=== PATIENT | female | born 1960 | race Caucasian/White ===

== ENCOUNTER → 2018-05-19 | Outpatient (CLI) | payer OTHER ==
--- NOTE | 2018-05-19 14:04 | Diagnostic Imaging Report ---
INDICATION: Back pain. FINDINGS: Bone mineral analysis was performed of the lumbar spine and both hips. Bone mineral density of the lumbar spine L2-L4 is 0.804 with T score of -3.3. Bone mineral density of left femoral neck is 0.686 with a T score of -2.5. Bone mineral density of right femoral neck is 0.688 with a T score of -2.5. IMPRESSION: Findings consistent with osteoporosis of the lumbar spine and bilateral femoral necks. Dictated by: Dictated on workstation # [id number]
== END ==
LOC: RAD 09:35
PROVIDERS: ATTEND General Practice
DX: M77.9 Enthesopathy, unspecified (principal); E78.00 Pure hypercholesterolemia, unspecified; F17.200 Nicotine dependence, unspecified, uncomplicated; M54.9 Dorsalgia, unspecified
CPT/HCPCS: 77080

== ENCOUNTER → 2019-05-23 | Outpatient (CLI) | payer OTHER ==
--- NOTE | 2019-05-23 13:01 | Diagnostic Imaging Report ---
PROCEDURE: US Non-ob pelvis comp/trans. TECHNIQUE: Multiple realtime grayscale images were obtained of the pelvis in various projections endovaginally. Transabdominal imaging was also performed. INDICATION: Postmenopausal lower abdominal pain. COMPARISON: None available. FINDINGS: The uterus measures 4.2 x 2.8 x 5.9 cm. The myometrium is normal in echogenicity without discrete mass. The endometrium measures up to 0.3 cm where visualized, and is normal in echogenicity. The right ovary is not seen with certainty. There is a structure in the right adnexa that is measured at 3.8 x 3.3 x 2.4 cm that could represent an enlarged ovary versus bowel loop containing stool. The left ovary measures 2.2 x 1.4 x 1.2 cm. Blood flow is present in the left ovary by color Doppler imaging. No free pelvic fluid. IMPRESSION: 1. Right ovary is not identified with certainty. There is a structure in the right adnexa that could represent a stool filled bowel loop versus an abnormal ovary. Recommend CT pelvis with contrast for better delineation. Dictated by: Dictated on workstation # [id number]
== END ==
LOC: RAD 10:02
PROVIDERS: ATTEND Nurse Practitioner Family
DX: R10.30 Lower abdominal pain, unspecified (principal); Z78.0 Asymptomatic menopausal state
CPT/HCPCS: 76830; 76856

== ENCOUNTER → 2019-05-30 | Outpatient (CLI) | payer OTHER ==
--- NOTE | 2019-05-30 15:13 | Diagnostic Imaging Report ---
PROCEDURE: CT abdomen and pelvis without contrast. TECHNIQUE: Multiple contiguous axial images were obtained through the abdomen and pelvis without the use of intravenous contrast. Auto Exposure Controls were utilized during the CT exam to meet ALARA standards for radiation dose reduction. INDICATION: Pelvic fullness and questionable mass on ultrasound. FINDINGS: The heart size is normal. The lung bases are clear. The liver is normal in size without focal lesions. Gallbladder is contracted. There is no biliary ductal dilatation. Spleen is normal. Pancreas and adrenal glands are unremarkable. There is a cyst in the right kidney. There is some atherosclerotic calcification of the aorta which is nonaneurysmal. Bowel gas pattern is nonspecific. Uterus is grossly normal. There are no obvious adnexal masses. Bladder is normal. There is no free pelvic fluid. There are degenerative changes in the spine. IMPRESSION: Benign right renal cyst. No evidence of pelvic mass, adenopathy, or free fluid. Degenerative changes in the spine. No other acute abnormality in the abdomen or pelvis. Dictated by: Dictated on workstation # [id number]
== END ==
LOC: RAD 14:11
PROVIDERS: ATTEND Nurse Practitioner Family
DX: N28.1 Cyst of kidney, acquired (principal); M47.9 Spondylosis, unspecified; R19.00 Intra-abdominal and pelvic swelling, mass and lump, unspecified site
CPT/HCPCS: 74176

== ENCOUNTER 2019-10-23 09:36 | Emergency (ER) | payer OTHER ==
[~2019-10-23] VITALS: Ht 167 cm; Wt 67.0 kg
--- OUTSIDE RECORDS SUMMARY | 2019-10-23 10:02 | XMS REPORT ---
Author Author Sara AZEVEDO Organization [facility] Address [address] [place] [address] Care Team Providers Care Speeder Tender Name Role Phone PRIYANKA AZEVEDO Unavailable PROBLEMS Type Condition ICD9-CM Code RFR96-ZZ Code Onset Dates Condition S tatus SNOMED Code Problem Subclinical hypothyroidism E03.9 Act jason 05251542 Problem Other chronic pain G89.29 Active 8 9555336 ALLERGIES No Information SOCIAL HISTORY Never Assessed PLAN OF CARE VITAL SIGNS MEDICATIONS Medication Instructions Dosage Frequency Start Date End Date Duration S tatus PredniSONE 20 mg Orally Once a day 1 tablet 24h Sep, Sep, 0 days Active RESULTS No Results PROCEDURES No Known procedures IMMUNIZATIONS No Known Immunizations MEDICAL (GENERAL) HISTORY Type Description Date Medical History granuloma annular Surgical History dilatation and curettage Surgical History cataract removal/ right Hospitalization History childbirth only
--- OUTSIDE RECORDS SUMMARY | 2019-10-23 10:02 | XMS REPORT ---
Author Author Sara AZEVEDO Organization [facility] Address [address] [place] [address] Care Team Providers Care Electric Mule Driver Name Role Phone PRIYANKA AZEVEDO Unavailable PROBLEMS Type Condition ICD9-CM Code [id number] Code Onset Dates Condition S tatus SNOMED Code Problem Vaginal dryness, menopausal N95.1 Ac tive 10212083 Problem Subclinical hypothyroidism E03.9 Act jason 41283626 Problem Other chronic pain G89.29 Active 8 8356823 ALLERGIES No Information ENCOUNTERS Encounter Location Date Diagnosis [facility] [id number][place] [id number] Jan, [facility] [id number], [place] [id number] Jan, [facility] [id number], [place] [id number] Jan, [facility] [id number], [place] [id number] Dec, Well woman exam Z01.419 ; Screening for breast cancer Z12.31 ; Vaginal dryness, menopausal N95.1 ; Colon cancer screening Z12.11 and Subclinical hypothyroidism E03.9 [facility] [address] [id number], [place] [id number] Sep, Left tennis elbow M77.12 [facility] [address] [id number][place] [id number] Sep, Granuloma annulare L92.0 and Left tennis elbow M77.12 [facility] [id number], [place] [id number] Aug, [facility] [address] [id number], [place] [id number] Aug, Multiple skin nodules R22.[address] [id number], [place] [address] Jul, Subclinical hypothyroidism E03.[address] [id number], [place] [id number] Jul, Elevated TSH R94.[address] [id number], [place] [address] May, Elevated TSH R94.[address] [id number], [place] [address] May, Multiple skin nodules R22.9 ; Thyroid di sorder screen Z13.29 ; Pain in right elbow M25.521 and Other chronic pain G89.[address] [id number], [place] [address] May, Impacted cerumen of left ear H61.22 ; Sc reening cholesterol level Z13.220 ; Thyroid disorder screen Z13.29 ; Multiple skin nodules R22.9 ; Pain in right elbow M25.521 ; Pain in left elbow M25.522 ; Pain in right knee M25.561 ; Pain in left knee M25.562 ; Other chronic pain G89.29 ; Pain of left hand M79.642 and Pain in right hand M79.[address] [id number], [place] [id number] May, IMMUNIZATIONS No Known Immunizations SOCIAL HISTORY Never Assessed REASON FOR VISIT lab results/letter mailed PLAN OF CARE VITAL SIGNS MEDICATIONS Unknown Medications RESULTS No Results PROCEDURES No Known procedures INSTRUCTIONS MEDICATIONS ADMINISTERED No Known Medications MEDICAL (GENERAL) HISTORY Type Description Date Medical History granuloma annular Surgical History dilatation and curettage Surgical History cataract removal/ right Hospitalization History childbirth only
--- OUTSIDE RECORDS SUMMARY | 2019-10-23 10:02 | XMS REPORT ---
Author Author Sara PEÑA [facility] eClinicalWorks Address Unknown Phone Unavailable Care Team Providers Care Surgical Consultant Name Role Phone CRISPIN PEÑA CP Unavailable Allergies No Known Allergies Problems Problem Type Condition Code Onset Dates Condition Statu s Problem Other chronic pain G89.29 Active Medications No Known Medications Results No Known Results Summary Purpose eClinicalWorks Submission
--- OUTSIDE RECORDS SUMMARY | 2019-10-23 10:02 | XMS REPORT ---
Author Sara Georges [facility] eClinicalWorks Address Unknown Phone Unavailable Care Team Providers Care Sales Representatives Name Role Phone PRIYANKA AZEVEDO CP Unavailable Allergies, Adverse Reactions, Alerts Substance Reaction Event Type Codeine Sulfate itching Drug Allergy Problems Problem Type Condition Code Onset Dates Condition Statu s Assessment Other chronic pain G89.29 Active Assessment Pain in right knee M25.561 Active Assessment Pain in left knee M25.562 Active Assessment Pain in right hand M79.641 Active Assessment Pain of left hand M79.642 Active Assessment Impacted cerumen of left ear H61.22 Active Assessment Screening cholesterol level Z13.220 Active Problem Other chronic pain G89.29 Active Assessment Pain in right elbow M25.521 Active Assessment Pain in left elbow M25.522 Active Assessment Thyroid disorder screen Z13.29 Acti ve Assessment Multiple skin nodules R22.9 Active Medications Medication Code System Code Instructions Start Date End Date Status Dosage Multivitamin Adult [facility] [address] - Orally not defined Ibuprofen [facility] [address]-42 400 MG Orally Three times a day 1 tablet Procedures Procedure Coding System Code Date Office Visit, New Pt., Level 3 CPT-4 32548 N ov 2015 Vital Signs Date/Time: Jun 15, 2016 Cardiac Monitoring Heart Rate 68 bpm Weight 152 lbs Height 66 in BMI 24.53 Index Blood Pressure Diastolic 80 mmHg Blood Pressure Systolic 142 mmHg Results No Known Results Summary Purpose eClinicalWorks Submission
--- OUTSIDE RECORDS SUMMARY | 2019-10-23 10:02 | XMS REPORT ---
Author Sara Georges [facility] eClinicalWorks Address Unknown Phone Unavailable Care Team Providers Care Insulation Hoseman Name Role Phone PRIYANKA AZEVEDO CP Unavailable Allergies No Known Allergies Problems Problem Type Condition Code Onset Dates Condition Statu s Assessment Elevated TSH R94.6 Active Problem Other chronic pain G89.29 Active Medications No Known Medications Results No Known Results Summary Purpose eClinicalWorks Submission
--- OUTSIDE RECORDS SUMMARY | 2019-10-23 10:02 | XMS REPORT ---
Author Author Sara AZEVEDO Organization [facility] Address [address] [place] [address] Care Team Providers Care Biological Aide Name Role Phone PRIYANKA AZEVEDO Unavailable PROBLEMS Type Condition ICD9-CM Code JPI47-MP Code Onset Dates Condition S tatus SNOMED Code Problem Subclinical hypothyroidism E03.9 Act jason [id number] Problem Other chronic pain G89.29 Active 8 0772220 ALLERGIES Substance Reaction Event Type Date Status Codeine Sulfate itching Drug Allergy Sep, Active SOCIAL HISTORY Never Assessed PLAN OF CARE Activity Details Follow Up prn Reason: VITAL SIGNS Height 66 in 2016-09-28 Weight 154.6 lbs 2016-09-28 Temperature 96.9 degrees Fahrenheit 2016-09-28 Heart Rate 74 bpm 2016-09-28 Respiratory Rate 16 2016-09-28 BMI 24.95 kg/m2 2016-09-28 Blood pressure systolic 114 mmHg 2016-09-28 Blood pressure diastolic 62 mmHg 2016-09-28 MEDICATIONS Medication Instructions Dosage Frequency Start Date End Date Duration S tatus PredniSONE 20 mg Orally Once a day 1 tablet 24h Sep, Sep, 05 days Active Multivitamin Adult - Act jason Ibuprofen 400 MG Orally Three times a day 1 tablet 8h Active RESULTS No Results PROCEDURES Procedure Date Ordered Result Body Site INJECTION INTO SKIN LESIONS 2016-09-28 N/A INJECTION INTO SKIN LESIONS September 28, 2016 IMMUNIZATIONS No Known Immunizations MEDICAL (GENERAL) HISTORY Type Description Date Medical History granuloma annular Surgical History dilatation and curettage Surgical History cataract removal/ right Hospitalization History childbirth only
--- OUTSIDE RECORDS SUMMARY | 2019-10-23 10:02 | XMS REPORT ---
Author Sara Georges [facility] eClinicalWorks Address Unknown Phone Unavailable Care Team Providers Care Product Picker Name Role Phone PRIYANKA AZEVEDO CP Unavailable Allergies No Known Allergies Problems Problem Type Condition Code Onset Dates Condition Statu s Assessment Multiple skin nodules R22.9 Active Assessment Thyroid disorder screen Z13.29 Acti ve Problem Other chronic pain G89.29 Active Assessment Pain in right elbow M25.521 Active Assessment Other chronic pain G89.29 Active Medications No Known Medications Procedures Procedure Coding System Code Date ASSAY THYROID STIM HORMONE CPT-4 27702 May 272015 COMPLETE CBC W/AUTO DIFF WBC CPT-4 60422 Jun 16, 2016 ANTINUCLEAR ANTIBODIES CPT-4 54485 Jun 16, 2 016 VENIPUNCT, ROUTINE* CPT-4 84946 Jun 16, 2016 COMPREHEN METABOLIC PANEL CPT-4 38864 May RHEUMATOID FACTOR, QUANT CPT-4 55588 Jun 16, 2016 RBC SED RATE, AUTOMATED CPT-4 61294 Jun 16, 2016 LIPID PANEL CPT-4 53370 Jun 16, 2016 C-REACTIVE PROTEIN CPT-4 99793 Jun 16, 2016 Results Name Result Date Reference Range Unit Abnormali ty Flag THYROID ANALYZER ----Thyroid Peroxidase (TPO) Ab 13 59127020 0-34 IU/m L ----TSH 5.010 38898825 0.450-4.500 uIU/mL H ----T4,Free (Direct) 1.13 74413395 0.82-1.77 ng/dL CBC ----Basos 1 31796469 % ----MCV 86 69613518 79-97 fL ----Hematocrit 41.4 37156551 34.0-46.6 % ----Eos 3 31613875 % ----MCHC 32.6 41292513 31.5-35.7 g/dL ----Monocytes 7 91502394 % ----MCH 28.1 86303145 26.6-33.0 pg ----Lymphs 35 98121630 % ----Eos (Absolute) 0.2 36261507 0.0-0.4 x10E3/uL ----WBC 4.9 31723975 3.4-10.8 x10E3/uL ----Monocytes(Absolute) 0.3 62259233 0.1-0.9 x10E3/uL ----Lymphs (Absolute) 1.7 54711498 0.7-3.1 x10E3/uL ----Hemoglobin 13.5 20160616 11.1-15.9 g/dL ----Neutrophils (Absolute) 2.7 30458985 1.4-7.0 x10E3/uL ----RBC 4.81 03504044 3.77-5.28 x10E6/uL ----Immature Grans (Abs) 0.0 76773503 0.0-0.1 x10E3/uL ----Immature Granulocytes 0 60323063 % ----Neutrophils 54 33405352 % ----Baso (Absolute) 0.1 63212895 0.0-0.2 x10E3/uL ----RDW 14.1 19070943 12.3-15.4 % ----Platelets 282 54753185 150-379 x10E3/uL ROUTINE VENIPUNCTURE ERIKA ANALYZER ----ERIKA Direct Negative [id number] Negative CMP ----Alkaline Phosphatase, S 70 20160616 39-117 IU/L ----Creatinine, Serum 0.59 20160616 0.57-1.00 mg/dL ----Bilirubin, Total 0.5 20160616 0.0-1.2 mg/dL ----eGFR If NonAfricn Am 103 20160616 >59 mL/min/1.73 ----A/G Ratio 1.8 20160616 1.1-2.5 ----Glucose, Serum 89 20160616 65-99 mg/dL ----Globulin, Total 2.3 20160616 1.5-4.5 g/dL ----BUN 16 20160616 6-24 mg/dL ----ALT (SGPT) 13 20160616 0-32 IU/L ----AST (SGOT) 14 20160616 0-40 IU/L ----Chloride, Serum 102 20160616 97-106 mmol/L ----Sodium, Serum 142 20160616 136-144 mmol/L ----Albumin, Serum 4.2 20160616 3.5-5.5 g/dL ----Potassium, Serum 4.1 20160616 3.5-5.2 mmol/L ----Protein, Total, Serum 6.5 20160616 6.0-8.5 g/dL ----eGFR If Africn Am 118 20160616 >59 mL/min/1.73 ----Calcium, Serum 9.4 20160616 8.7-10.2 mg/dL ----BUN/Creatinine Ratio 27 20160616 9-23 H ----Carbon Dioxide, Total 25 20160616 18-29 mmol/L CRP ----C-Reactive Protein, Quant 0.7 20160616 0.0-4.9 mg/L LIPID PANEL ----Cholesterol, Total 228 20160616 100-199 mg/dL H ----Triglycerides 105 20160616 0-149 mg/dL ----HDL Cholesterol 62 38656810 >39 mg/dL ----VLDL Cholesterol Casey 21 20160616 5-40 mg/dL ----LDL Cholesterol Calc 145 45970125 0-99 mg/dL H ESR/SED RATE ----Sedimentation Rate-Westergren 2 94841996 0-40 mm /hr RA (RHEUMATOID) FACTOR ----RA Latex Turbid. <10.0 [id number] 0.0-13.9 IU/mL Summary Purpose eClinicalWorks Submission
--- OUTSIDE RECORDS SUMMARY | 2019-10-23 10:02 | XMS REPORT ---
Author Author Sara AZEVEDO Organization [facility] Address [address] [place] [address] Care Team Providers Care Oven Dumper Name Role Phone PRIYANKA AZEVEDO Unavailable PROBLEMS Type Condition ICD9-CM Code SVG34-TZ Code Onset Dates Condition S tatus SNOMED Code Problem Vaginal dryness, menopausal N95.1 Ac tive 35502903 Problem Subclinical hypothyroidism E03.9 Act jason 56823963 Problem Other chronic pain G89.29 Active 8 9153822 ALLERGIES No Information ENCOUNTERS Encounter Location Date Diagnosis [facility] [id number] [place] [id number] Jan, [facility] [address] [id number] [place] [phone] Jan, [facility] [id number] [place] [id number] Jan, [facility] [id number] [place] [address] Dec, Well woman exam Z01.419 ; Screening for breast cancer Z12.31 ; Vaginal dryness, menopausal N95.1 ; Colon cancer screening Z12.11 and Subclinical hypothyroidism E03.9 [facility] [address] [id number] JUN[place], [place] [id number] Sep, Left tennis elbow M77.12 [facility] [address] [id number] [place], [place] [id number] Sep, Granuloma annulare L92.0 and Left tennis elbow M77.12 [facility] [id number] [place] [id number] Aug, [facility] [address] [id number] [place] [id number] Aug, Multiple skin nodules R22.[address] [id number] [place], [place] [id number] Jul, Subclinical hypothyroidism E03.[address] [id number] [place] [address] Jul, Elevated TSH R94.[address] [id number] [place], [place] [address] May, Elevated TSH R94.[address] [id number] [place], [place] [address] May, Multiple skin nodules R22.9 ; Thyroid di sorder screen Z13.29 ; Pain in right elbow M25.521 and Other chronic pain G89.[address] [id number] [place] [address] May, Impacted cerumen of left ear H61.22 [...] M79.642 and Pain in right hand M79.[address] [id number] [place] [address] May, IMMUNIZATIONS No Known Immunizations SOCIAL HISTORY Never Assessed REASON FOR VISIT Lab results PLAN OF CARE VITAL SIGNS MEDICATIONS Unknown Medications RESULTS No Results PROCEDURES No Known procedures INSTRUCTIONS MEDICATIONS ADMINISTERED No Known Medications MEDICAL (GENERAL) HISTORY Type Description Date Medical History granuloma annular Surgical History dilatation and curettage Surgical History cataract removal/ right Hospitalization History childbirth only
--- OUTSIDE RECORDS SUMMARY | 2019-10-23 10:02 | XMS REPORT ---
Author Author Sara AZEVEDO Organization [facility] Address [address] [place] [address] Care Team Providers Care Heel Brusher Name Role Phone PRIYANKA AZEVEDO Unavailable PROBLEMS Type Condition ICD9-CM Code GHZ42-EJ Code Onset Dates Condition S tatus SNOMED Code Problem Vaginal dryness, menopausal N95.1 Ac tive 12432838 Problem Subclinical hypothyroidism E03.9 Act jason 83760387 Problem Other chronic pain G89.29 Active 8 6391378 ALLERGIES Substance Reaction Event Type Date Status Codeine Sulfate itching Drug Allergy Dec, Active ENCOUNTERS Encounter Location Date Diagnosis [facility] [address] [id number], [place] [phone] Jan, [facility] CanadaSAM[facility]EL[facility] [address] [id number], [place] [id number] Jan, [facility] CanadaSAM[facility] [facility] [address] [id number], [place] [phone] Jan, [facility] CanadaSAMUELSCOLLEEN [place] [address] [facility] [address] [id number], [place] [phone] Dec, Well woman exam Z01.419 ; Screening for breast cancer Z12.31 ; Vaginal dryness, menopausal N95.1 ; Colon cancer screening Z12.11 and Subclinical hypothyroidism E03.9 [facility] [address] [id number], [place] [address] Sep, Left tennis elbow M77.12 [facility] [address]SAM[facility] [address] [id number], [place] [address] Sep, Granuloma annulare L92.0 and Left tennis elbow M77.12 [facility] [address] [id number], [place] [id number] Aug, [facility] Padilla [facility] [address] [id number], [place] [address] Aug, Multiple skin nodules R22.9 [facility] CENTERMaureen Walsh[address] [place] [address] [id number], [place] [id number] Jul, Subclinical hypothyroidism E03.9 [facility] SAMUELS[address] [id number], [place] [id number] Jul, Elevated TSH R94.6 [facility] CENTERMaureen COBIANSAMUELS[address] [id number], [place] [address] May, Elevated TSH R94.[address] [id number], [place] [id number] May, Multiple skin nodules R22.9 ; Thyroid di sorder screen Z13.29 ; Pain in right elbow M25.521 and Other chronic pain G89.29 [facility] SAMUELS[address] [id number], [place] [id number] May, Impacted cerumen of left ear H61.22 [...] M79.642 and Pain in right hand M79.641 [facility] SAMUELS[address] [id number], [place] [address] May, IMMUNIZATIONS No Known Immunizations SOCIAL HISTORY Never Assessed REASON FOR VISIT well woman---pattie, RN PLAN OF CARE Activity Details Follow Up prn Reason: VITAL SIGNS Height 66 in 2018-01-13 Weight 154.6 lbs 2018-01-13 Temperature 96.4 degrees Fahrenheit 2018-01-13 Heart Rate 73 bpm 2018-01-13 Respiratory Rate 16 2018-01-13 BMI 24.95 kg/m2 2018-01-13 Blood pressure systolic 167 mmHg 2018-01-13 Blood pressure diastolic 90 mmHg 2018-01-13 MEDICATIONS Medication Instructions Dosage Frequency Start Date End Date Duration S tatus Premarin 0.625 MG/GM Vaginal Daily for Three Weeks, 1 Week off 1gm Dec, Active Metoprolol Tartrate 25 MG Orally Twice a day 1 tablet with food 12h Active Estrace 0.1 MG/GM Vaginal 3 times a week 1 gram Dec, Active Multivitamin Adult - Act jason Ibuprofen 400 MG Orally Three times a day 1 tablet 8h Active RESULTS No Results PROCEDURES Procedure Date Ordered Result Body Site COMPLETE CBC W/AUTO DIFF WBC January 13, 2018 COMPREHEN METABOLIC PANEL January 13, 2018 VENIPUNCT, ROUTINE* January 13, 2018 SPECIMEN HANDLING January 13, 2018 ASSAY THYROID STIM HORMONE January 13, 2018 LIPID PANEL January 13, 2018 TEST FOR BLOOD, FECES January 13, 2018 INSTRUCTIONS MEDICATIONS ADMINISTERED No Known Medications MEDICAL (GENERAL) HISTORY Type Description Date Medical History granuloma annular Surgical History dilatation and curettage Surgical History cataract removal/ right Hospitalization History childbirth only
--- OUTSIDE RECORDS SUMMARY | 2019-10-23 10:02 | XMS REPORT ---
Author Author Sara AZEVEDO Organization [facility] Address [address] [place] [address] Care Team Providers Care Substance Abuse Clinician Name Role Phone PRIYANKA AZEVEDO Unavailable PROBLEMS Type Condition ICD9-CM Code LQS51-TH Code Onset Dates Condition S tatus SNOMED Code Problem Subclinical hypothyroidism E03.9 Act jason 79778012 Problem Other chronic pain G89.29 Active 8 3581536 ALLERGIES Unknown Allergies SOCIAL HISTORY No smoking Hx information available PLAN OF CARE VITAL SIGNS MEDICATIONS Unknown Medications RESULTS Name Result Date Reference Range THYROID ANALYZER 2016-08-03 TSH 6.040 0.450-4.500 T4,Free (Direct) 1.06 0.82-1.77 Thyroid Peroxidase (TPO) Ab 12 0-34 Interpretive Comment PROCEDURES Procedure Date Ordered Related Diagnosis Body Site ASSAY THYROID STIM HORMONE Aug 03, 2016 VENIPUNCT, ROUTINE* Aug 03, 2016 IMMUNIZATIONS No Known Immunizations
--- OUTSIDE RECORDS SUMMARY | 2019-10-23 10:02 | XMS REPORT ---
Author Author Sara AZEVEDO Organization [facility] Address [address] [place] [address] Care Team Providers Care Verse Writer Name Role Phone PRIYANKA AZEVEDO Unavailable PROBLEMS Type Condition ICD9-CM Code BWW76-CF Code Onset Dates Condition S tatus SNOMED Code Problem Subclinical hypothyroidism E03.9 Act jason 56532291 Problem Other chronic pain G89.29 Active 8 3411401 ALLERGIES Substance Reaction Event Type Date Status Codeine Sulfate itching Drug Allergy Aug, Active SOCIAL HISTORY No smoking Hx information available PLAN OF CARE Activity Details Follow Up prn Reason: VITAL SIGNS Height 66 in 2016-08-28 Weight 154.5 lbs 2016-08-28 Temperature 97.1 degrees Fahrenheit 2016-08-28 Heart Rate 85 bpm 2016-08-28 Respiratory Rate 16 2016-08-28 BMI 24.93 kg/m2 2016-08-28 Blood pressure systolic 130 mmHg 2016-08-28 Blood pressure diastolic 80 mmHg 2016-08-28 MEDICATIONS Medication Instructions Dosage Frequency Start Date End Date Duration S tatus Ibuprofen 400 MG Orally Three times a day 1 tablet 8h Active Multivitamin Adult - Act jason RESULTS Name Result Date Reference Range PDF Report 2016-08-28 PDF Report1 [facility] PATHOLOGY REPORT 2016-08-28 . . . . Comment: . . . . PROCEDURES Procedure Date Ordered Related Diagnosis Body Site EXC BENIGN LEISON <0.5 cm (specify location) 2016-08-28 N/A EXC TR-EXT B9 EVELYNE 0.5 < CM Aug 28, 2016 Office Visit, Est Pt., Level 3 Aug 28, 2016 IMMUNIZATIONS No Known Immunizations
--- OUTSIDE RECORDS SUMMARY | 2019-10-23 10:02 | XMS REPORT ---
Author Author Sara AZEVEDO [facility] Address [address] [place] [address] Care Team Providers Care Tick Inspector Name Role Phone PRIYANKA AZEVEDO Unavailable PROBLEMS Type Condition ICD9-CM Code MJV27-LY Code Onset Dates Condition S tatus SNOMED Code Problem Subclinical hypothyroidism E03.9 Act jason [id number] Problem Other chronic pain G89.29 Active 8 [id number] ALLERGIES Unknown Allergies SOCIAL HISTORY No smoking Hx information available PLAN OF CARE VITAL SIGNS MEDICATIONS Unknown Medications RESULTS No Results PROCEDURES No Known procedures IMMUNIZATIONS No Known Immunizations
--- OUTSIDE RECORDS SUMMARY | 2019-10-23 10:02 | XMS REPORT ---
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 Phone PRIYANKA AZEVEDO Unavailable PROBLEMS Type Condition ICD9-CM Code CEL24-GZ Code Onset Dates Condition S tatus SNOMED Code Problem Vaginal dryness, menopausal N95.1 Ac tive 18007245 Problem Subclinical hypothyroidism E03.9 Act jason [id number] Problem Other chronic pain G89.29 Active 8 1851190 ALLERGIES No Information ENCOUNTERS Encounter Location Date Diagnosis [facility] [id number][place] [id number] Jan, [facility] [id number][place] [id number] Jan, [facility] [id number], [place] [id number] Jan, [email or web address] [id number][place] [id number] Dec, Well woman exam Z01.419 ; Screening for breast cancer Z12.31 ; Vaginal dryness, menopausal N95.1 ; Colon cancer screening Z12.11 and Subclinical hypothyroidism E03.9 [facility] [address] [id number], [place] [id number] Sep, Left tennis elbow M77.12 [facility] [address] [id number], [place] [id number] Sep, Granuloma annulare 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.0 and Left tennis elbow M77.12 [facility] [id number][place] [id number] Aug, [facility] [address] [id number][place] [id number] Aug, Multiple skin nodules R22.[address] [id number][place] [id number] Jul, Subclinical hypothyroidism E03.[address] [id number], [place] [id number] Jul, Elevated TSH R94.[address] [id number], [place] [id number] May, Elevated TSH R94.[address] [id number], [place] [id number] May, Multiple skin nodules R22.9 ; Thyroid di sorder screen Z13.29 ; Pain in right elbow M25.521 and Other chronic pain G89.[address] [id number], [place] [id number] May, Impacted cerumen of left ear H61.22 [...] M79.642 and Pain in right hand M79.[address] [id number], [place] [id number] May, IMMUNIZATIONS No Known Immunizations SOCIAL HISTORY Never Assessed REASON FOR VISIT letter mailed PLAN OF CARE VITAL SIGNS MEDICATIONS Unknown Medications RESULTS No Results PROCEDURES No Known procedures INSTRUCTIONS MEDICATIONS ADMINISTERED No Known Medications MEDICAL (GENERAL) HISTORY Type Description Date Medical History granuloma annular Surgical History dilatation and curettage Surgical History cataract removal/ right Hospitalization History childbirth only
--- OUTSIDE RECORDS SUMMARY | 2019-10-23 10:03 | XMS REPORT ---
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 Phone PRIYANKA AZEVEDO Unavailable PROBLEMS Type Condition ICD9-CM Code IGQ40-VL Code Onset Dates Condition S tatus SNOMED Code Problem Subclinical hypothyroidism E03.9 Act jason [id number] Problem Other chronic pain G89.29 Active 8 3592058 ALLERGIES No Information SOCIAL HISTORY Never Assessed PLAN OF CARE VITAL SIGNS MEDICATIONS Unknown Medications RESULTS No Results PROCEDURES No Known procedures IMMUNIZATIONS No Known Immunizations MEDICAL (GENERAL) HISTORY Type Description Date Medical History granuloma annular Surgical History dilatation and curettage Surgical History cataract removal/ right Hospitalization History childbirth only
[2019-10-23] MEDS ORDERED: MAGN400C PO (10:18)
[2019-10-23] MEDS ORDERED: LACT1CAP64 PO (10:18)
[2019-10-23] MEDS ORDERED: ROSU10TA28 PO (10:18)
[2019-10-23] MEDS ORDERED: NS IV 1000 ML 1,000 ML IV SCH (11:19)
[2019-10-23 11:31] LABS: BASOPHILS % (AUTO) 1 % (0-10); EOSINOPHILS # (AUTO) 0.1 10^3/uL (0.0-0.3); EOSINOPHILS % (AUTO) 1 % (0-10); HEMATOCRIT 51 % (35-52); HEMOGLOBIN 16.8 G/DL (11.5-16.0); LYMPHOCYTES # (AUTO) 1.2 X 10^3 (1.0-4.0); LYMPHOCYTES % (AUTO) 18 % (12-44); MEAN CORPUSCULAR HEMOGLOBIN 28 PG (25-34); MEAN CORPUSCULAR HGB CONC 33 G/DL (32-36); MEAN CORPUSCULAR VOLUME 85 FL (80-99); MEAN PLATELET VOLUME 11.7 FL (7.4-10.4); MONOCYTES # (AUTO) 0.6 X 10^3 (0.0-1.0); MONOCYTES % (AUTO) 9 % (0-12); NEUTROPHILS # (AUTO) 4.7 X 10^3 (1.8-7.8); NEUTROPHILS % (AUTO) 72 % (42-75); PLATELET COUNT 293 10^3/uL (130-400); WHITE BLOOD COUNT 6.6 10^3/uL (4.3-11.0)
--- NOTE | 2019-10-23 11:44 | ED Abdominal Pain ---
General Chief Complaint: Abdominal/GI Problems Stated Complaint: ABD PAIN Nursing Triage Note: PT STATES UPPER AND LOWER ABD PAIN SINCE LAST FEBRUARY, IS SEEING A DR IN [place] AND HAS AN APPOINTMENT THIS WEEK BUT THE PAIN KEEPS GETTING WORSE. DENIES URINARY ISSUES, OCCATIONAL CONSTIPATION, NORMAL BM THIS A.M. PT STATES SHE ONLY EATS AT LUNCH BECAUSE AFTER SHE EATS SHE HAS ABD PAIN AND "I'M DONE FOR THE REST OF THE DAY" MEANING SHE HAS TO LAY DOWN AND CAN'T DO ANYTHING. Sepsis Screen: No Definite Risk History of Present Illness Date Seen by Provider: Oct 23, 2019 Time Seen by Provider: 11:05 Initial Comments 59-year-old female presents for chronic abdominal pain that been present since February 2019. She has been seeing her primary care provider for this but her symptoms have not improved. She is scheduled to see Dr. Gutiérrez on November 14. She's had no previous colonoscopies or abdominal surgeries, stools have never been tested. She has no history of chronic abdominal problems, diarrhea or vomiting, endometriosis or other identified causes. She takes Tylenol when the pain becomes extreme otherwise she rests when it is hurting. Symptoms are worse after she eats She denies any weight loss or gain. She rep orts during the month of August that she noted her stools to be ribbonlike. She otherwise denies any change in the consistency or color. No family history of GI or cancers. Patient reports her in take today has included coffee and OJ, no solid foods. She is not taking any GI medications. Longstanding history of smoking 1 pack a day, since age 14. Timing/Duration: Intermittent Severity/Quality: Mild Location: Generalized Abdomen Radiation: No Radiation Modifying Factors: Improves With Resting Associated Symptoms: Denies Symptoms Allergies and Home Medications Allergies Coded Allergies: codeine (Verified Allergy, Severe, 10/23/19) Home Medications Lactobacillus Combo No.11 1 Each Cap.sprink, 1 EACH PO DAILY PRN, (Reported) Magnesium Oxide 400 Mg Capsule, 400 MG PO DAILY, (Reported) Rosuvastatin Calcium 10 Mg Tablet, 10 MG PO DAILY, (Reported) Patient Home Medication List Home Medication List Reviewed: Yes Review of Systems Review of Systems Constitutional: no symptoms reported, see HPI Gastrointestinal: See HPI, Abdomen Distended, Abdominal Pain; Denies Blood Streaked Stools, Denies Constipated, Denies Diarrhea, Denies Nausea, Denies Poor Appetite, Denies Poor Fluid Intake, Denies Rectal Bleeding, Denies Vomiting Genitourinary: No Symptoms Reported, See HPI; Denies Burning, Denies Frequency, Denies Flank Pain, Denies Hematuria All Other Systems Reviewed Negative Unless Noted: Yes Past Tzyviup-Nuhsyh-Ujzkfc Hx Past Med/Social Hx: Reviewed Nursing Past Med/Soc Hx, Reviewed and Corrections made Patient Social History Alcohol Use: Denies Use Recreational Drug Use: No Smoking Status: Current Everyday Smoker Type Used: Cigarettes Recent Foreign Travel: No Contact w/Someone Who Travel: No Recent Infectious Disease Expo: No Recent Hopitalizations: No Physical Abuse: No Sexual Abuse: No Mistreated: No Fear: No Immunizations Up To Date Date of Influenza Vaccine: May 31, 2019 Seasonal Allergies Seasonal Allergies: No Past Medical History Surgeries: Yes (D&C, DENTAL) Eye Surgery Respiratory: No Cardiac: Yes (HX OF HYPERTENSION-NOT TAKING MEDS) High Cholesterol, Hypertension Neurological: No : 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 oz. kg; 24.00 BMI Method: General Appearance: WD/WN, no apparent distress HEENT: PERRL/EOMI, normal ENT inspection, TMs normal, pharynx normal Neck: non-tender, full range of motion, supple, normal inspection Respiratory: chest non-tender, lungs clear, normal breath sounds, no respiratory distress Cardiovascular: normal peripheral pulses, regular rate, rhythm Gastrointestinal: normal bowel sounds, soft, distended; No guarding, No rebound; tenderness (generalized); No hernia, No mass Extremities: normal range of motion, non-tender, normal inspection, no pedal edema, normal capillary refill Back: normal inspection, no CVA tenderness, no vertebral tenderness Neurologic/Psychiatric: no motor/sensory deficits, alert, normal mood/affect, oriented x 3 Skin: normal color, warm/dry; No jaundice Progress/Results/Core Measures Results/Orders Lab Results Laboratory Tests Test 10/23/19 10:20 10/23/19 10:40 Range/Units Urine Color YELLOW Urine Clarity CLEAR Urine pH 7.0 5-9 Urine Specific [place] 1.010 L 1.016-1.022 Urine Protein NEGATIVE NEGATIVE Urine Glucose (UA) NEGATIVE NEGATIVE Urine Ketones NEGATIVE NEGATIVE Urine Nitrite NEGATIVE NEGATIVE Urine Bilirubin NEGATIVE NEGATIVE Urine Urobilinogen 0.2 < = 1.0 MG/DL Urine Leukocyte Esterase NEGATIVE NEGATIVE Urine RBC (Auto) NEGATIVE NEGATIVE Urine RBC NONE /HPF Urine WBC RARE /HPF Urine Crystals NONE /LPF Urine Bacteria NEGATIVE /HPF Urine Casts NONE /LPF Urine Mucus NEGATIVE /LPF Urine Culture Indicated NO White Blood Count 6.6 4.3-11.0 10^3/uL Red Blood Count 5.94 H 4.35-5.85 10^6/uL Hemoglobin 16.8 H 11.5-16.0 G/DL Hematocrit 51 35-52 % Mean Corpuscular Volume 85 80-99 FL Mean Corpuscular Hemoglobin 28 25-34 PG Mean Corpuscular Hemoglobin Concent 33 32-36 G/DL Red Cell Distribution Width 14.0 10.0-14.5 % Platelet Count 293 130-400 10^3/uL Mean Platelet Volume 11.7 H 7.4-10.4 FL Neutrophils (%) (Auto) 72 42-75 % Lymphocytes (%) (Auto) 18 12-44 % Monocytes (%) (Auto) 9 0-12 % Eosinophils (%) (Auto) 1 0-10 % Basophils (%) (Auto) 1 0-10 % Neutrophils # (Auto) 4.7 1.8-7.8 X 10^3 Lymphocytes # (Auto) 1.2 1.0-4.0 X 10^3 Monocytes # (Auto) 0.6 0.0-1.0 X 10^3 Eosinophils # (Auto) 0.1 0.0-0.3 10^3/uL Basophils # (Auto) 0.0 0.0-0.1 10^3/uL Sodium Level 143 135-145 MMOL/L Potassium Level 4.3 3.6-5.0 MMOL/L Chloride Level 105 98-107 MMOL/L Carbon Dioxide Level 28 21-32 MMOL/L Anion Gap 10 5-14 MMOL/L Blood Urea Nitrogen 11 7-18 MG/DL Creatinine 0.82 0.60-1.30 MG/DL Estimat Glomerular Filtration Rate > 60 BUN/Creatinine Ratio 13 Glucose Level 94 70-105 MG/DL Calcium Level 10.1 8.5-10.1 MG/DL Corrected Calcium 8.5-10.1 MG/DL Total Bilirubin 0.6 0.1-1.0 MG/DL Aspartate Amino Transf (AST/SGOT) 29 5-34 U/L Alanine Aminotransferase (ALT/SGPT) 31 0-55 U/L Alkaline Phosphatase 73 40-136 U/L Total Protein 7.6 6.4-8.2 GM/DL Albumin 4.9 H 3.2-4.5 GM/DL Amylase Level 85 25-125 U/L Lipase 26 8-78 U/L My Orders Orders - STEPHIE DE JESUS Comprehensive Metabolic Panel (10/23/19 11:19) Lipase (10/23/19 11:19) Amylase (10/23/19 11:19) Ua Culture If Indicated (10/23/19 11:19) Ed Iv/Invasive Line Start (10/23/19 11:19) Cbc With Automated Diff (10/23/19 11:19) Ed Iv/Invasive Line Start (10/23/19 11:19) Ns Iv 1000 Ml (Sodium Chloride 0.9%) (10/23/19 11:19) Ct Abdomen/Pelvis W (10/23/19 11:51) Iohexol Injection (Omnipaque 350 Mg/Ml 1 (10/23/19 12:15) Received Contrast (Hold Metformin- Contr (10/23/19 12:15) Ns (Ivpb) (Sodium Chloride 0.9% Ivpb Bag (10/23/19 12:15) Medications Given in ED Current Medications Medications Dose Ordered Sig/Nicole Route Start Time Stop Time Status Last Admin Dose Admin Iohexol 100 ml ONCE ONCE IV 10/23/19 12:15 10/23/19 12:16 DC 10/23/19 12:29 100 ML Sodium Chloride 100 ml ONCE ONCE IV 10/23/19 12:15 10/23/19 12:16 DC 10/23/19 12:29 80 ML Vital Signs/I&O 10/23/19 10/23/19 10:07 13:31 Temp 37.1 37.1 Pulse 67 79 Resp 20 20 B/P (MAP) 150/65 (93) 170/91 (93) Pulse Ox 96 96 O2 Delivery Room Air Room Air Blood Pressure Mean: 93 Progress Progress Note : Time: 11:05 Progress Note Patient seen and evaluated, will obtain labs and CT of abdomen and pelvis with contrast. Reviewed previous ultrasound from 05/23/[address] of abdomen and pelvis without contrast from 05/30/19 (completed at radiology dept of this facility) that showed no significant abnormalities. 1200 Lab results reviewed with patient, awaiting CT. [address] Gutiérrez's office, appt made for tomorrow. [address] results with patient. Discussed the potential this could be a metastatic process and more information needs to be obtained. Discharge instructions and return precautions reviewed. All questions answered. Diagnostic Imaging Diagonstic Imaging: CT Comments NAME: MANSOOR WATTS [facility] REC#: [id number] PT STATUS: REG ER : 1960 PHYSICIAN: STEPHIE DE JESUS ADMIT DATE: 10/23/19/ER Draft Date of Exam:10/23/19 CT ABDOMEN/PELVIS W PROCEDURE: CT abdomen and pelvis with contrast. TECHNIQUE: Multiple contiguous axial images were obtained through the abdomen and pelvis after administration of intravenous contrast. Auto Exposure Controls were utilized during the CT exam to meet ALARA standards for radiation dose reduction. INDICATION: Upper abdominal pain and lower pelvic pain radiating to the kidneys. COMPARISON: 05/30/2019 FINDINGS: The lung bases demonstrate dependent scarring/atelectasis at the right lung. The heart is normal in size. The liver demonstrates no focal lesions. There is a small amount of free fluid about the liver. The spleen appears normal. There is a perfusion artifact. The pancreas is normal. The adrenal glands appear normal. There are stones in the gallbladder. The right kidney demonstrates a low density 2.9 x 2.8 cm lesion anteriorly in the superior pole which causes subtle mass effect on the posterior liver. This most likely represents a cyst, consistent with a Bosniak 2F, with slight thickening of the wall. No clear nodular enhancing components are seen. This does measure smaller in size compared to May 2019. There is some contrast accumulation in the cyst on the delayed phase. The bowel loops are nondistended without obstruction. There is a moderate free fluid in the pelvis. There is irregular enhancing omental infiltration and fluid in the left upper abdomen anteriorly. The hyperdensity is irregular and measures approximately 8 x 2 cm in size (image 33 series 2). There is a questionable mass in the right pelvis measuring 3.5 x 2.3 cm (image 57 series 2). No acute osseous abnormality is seen. IMPRESSION: 1. Moderate free fluid in the abdomen and pelvis with omental thickening and infiltration most notable in the left anterior abdomen. Findings are concerning for metastatic disease. There is a questionable mass in the right adnexa, suggesting possible ovarian origin. 2. Cystic structure in the right kidney has a slightly thickened wall, and short interval CT followup is recommended, however size does appear decreased compared to the previous exam. 3. Cholelithiasis. Dictated on workstation # [id number] Dict: 10/23/19 1231 Trans: 10/23/19 1302 CVB [id number] Interpreted by: KAMLA RAINEY MD Electronically signed by: Reviewed: Reviewed by Me Departure Impression Primary Impression: Abdominal pain Qualified Codes: R10.84 - Generalized abdominal pain Disposition: 01 HOME, SELF-CARE Condition: Improved Departure-Patient Inst. Decision time for Depature: 13:15 Referrals: [facility] Primary Care Physician PRIYANKA AZEVEDO APRN (Family) Primary Care Physician MALDONADO GUTIÉRREZ DO Patient Instructions: Acute Abdomen (Belly Pain), Adult (DC) Add. Discharge Instructions: You have an appt with Dr. Gutiérrez tomorrow at 9:30 am. Karnes, soft diet, as tolerated. Use Miralax one capful daily. Increase water in your diet. May continue to take Tylenol 650 mg every 6-8 hours as needed for pain. Return to the emergency department for new, urgent health care problems. All discharge instructions reviewed with patient and/or family. Voiced understanding. Copy Copies To 1: MALDONADO GUTIÉRREZ DO Copies To 2: SASCHA SOSA AMY ARNP Oct 23, 2019 11:44
[2019-10-23 11:48] LABS: BILIRUBIN,URINE NEGATIVE (NEGATIVE); CLARITY,URINE CLEAR; COLOR,URINE YELLOW; GLUCOSE, URINE (UA) NEGATIVE (NEGATIVE); KETONES,URINE NEGATIVE (NEGATIVE); LEUKOCYTE ESTERASE ,URINE NEGATIVE (NEGATIVE); NITRITE,URINE NEGATIVE (NEGATIVE); PROTEIN,URINE NEGATIVE (NEGATIVE)
[2019-10-23 11:48] LABS: ALANINE AMINOTRANSFERASE 31 U/L (0-55); ALBUMIN 4.9 GM/DL (3.2-4.5); ALKALINE PHOSPHATASE 73 U/L (40-136); AMYLASE 85 U/L (25-125); BILIRUBIN,TOTAL 0.6 MG/DL (0.1-1.0); BUN/CREATININE RATIO 13; CALCIUM 10.1 MG/DL (8.5-10.1); CARBON DIOXIDE 28 MMOL/L (21-32); CHLORIDE 105 MMOL/L (98-107); CREATININE SERUM 0.82 MG/DL (0.60-1.30); GFR ESTIMATED > 60; GLUCOSE 94 MG/DL (70-105); LIPASE 26 U/L (8-78); POTASSIUM 4.3 MMOL/L (3.6-5.0); SODIUM 143 MMOL/L (135-145); TOTAL PROTEIN 7.6 GM/DL (6.4-8.2)
[2019-10-23 11:53] LABS: BACTERIA,URINE NEGATIVE /HPF; WBC,URINE RARE /HPF
[2019-10-23] MEDS ORDERED: NS 100 ML (IVPB) BAG IV ONE (12:15)
[2019-10-23] MEDS ORDERED: IOHEXOL 350 MG/ML 100 ML (OMNIPAQUE 350) VIAL IV ONE (12:15)
[2019-10-23] MEDS ORDERED: HOLD METFORMIN - RECEIVED CONTRAST 20 ML VIAL IV SCH (12:15)
--- NOTE | 2019-10-23 13:03 | Diagnostic Imaging Report ---
PROCEDURE: CT abdomen and pelvis with contrast. TECHNIQUE: Multiple contiguous axial images were obtained through the abdomen and pelvis after administration of intravenous contrast. Auto Exposure Controls were utilized during the CT exam to meet ALARA standards for radiation dose reduction. INDICATION: Upper abdominal pain and lower pelvic pain radiating to the kidneys. COMPARISON: 05/30/2019 FINDINGS: The lung bases demonstrate dependent scarring/atelectasis at the right lung. The heart is normal in size. The liver demonstrates no focal lesions. There is a small amount of free fluid about the liver. The spleen appears normal. There is a perfusion artifact. The pancreas is normal. The adrenal glands appear normal. There are stones in the gallbladder. The right kidney demonstrates a low density 2.9 x 2.8 cm lesion anteriorly in the superior pole which causes subtle mass effect on the posterior liver. This most likely represents a cyst, consistent with a Bosniak 2F, with slight thickening of the wall. No clear nodular enhancing components are seen. This does measure smaller in size compared to May 2019. There is some contrast accumulation in the cyst on the delayed phase. The bowel loops are nondistended without obstruction. There is a moderate free fluid in the pelvis. There is irregular enhancing omental infiltration and fluid in the left upper abdomen anteriorly. The hyperdensity is irregular and measures approximately 8 x 2 cm in size (image 33 series 2). There is a questionable mass in the right pelvis measuring 3.5 x 2.3 cm (image 57 series 2). No acute osseous abnormality is seen. IMPRESSION: 1. Moderate free fluid in the abdomen and pelvis with omental thickening and infiltration most notable in the left anterior abdomen. Findings are concerning for metastatic disease. There is a questionable mass in the right adnexa, suggesting possible ovarian origin. 2. Cystic structure in the right kidney has a slightly thickened wall, and short interval CT followup is recommended, however size does appear decreased compared to the previous exam. 3. Cholelithiasis. Dictated by: Dictated on workstation # [id number]
[2019-10-23 13:31] VITALS: BP 170/91
== END 2019-10-23 13:31 | disposition home or self-care (01) ==
LOC: EDUNIT# 09:36 → ER 09:39
DX: R10.84 Generalized abdominal pain (principal); E78.00 Pure hypercholesterolemia, unspecified; I10 Essential (primary) hypertension; K59.09 Other constipation; F17.210 Nicotine dependence, cigarettes, uncomplicated; Z88.8 Allergy status to other drugs, medicaments and biological substances; Z91.14 Patient's other noncompliance with medication regimen
CPT/HCPCS: 36415; 74177; 80053; 81000; 82150; 83690; 85025

== ENCOUNTER → 2019-10-24 | Outpatient (CLI) | payer OTHER ==
[~2019-10-24] MED LIST: LACT1CAP64 PO; MAGN400C PO; ROSU10TA28 PO
== END ==
LOC: LAB 10:14
PROVIDERS: ATTEND Surgery
DX: R18.8 Other ascites (principal); R19.00 Intra-abdominal and pelvic swelling, mass and lump, unspecified site
CPT/HCPCS: 36415; 82105; 82378; 83615; 86301; 86304

== ENCOUNTER 2019-10-25 05:44 | Outpatient (CLI) | payer OTHER ==
[~2019-10-25] VITALS: Ht 167.7 cm; Wt 65.9 kg
== END 2019-10-25 10:18 ==
LOC: PREOP 05:44
PROVIDERS: ATTEND Surgery
DX: Z01.818 Encounter for other preprocedural examination (principal)